=== PATIENT | female | born 1950 | race Asian ===

== ENCOUNTER → 2017-06-20 | Outpatient (REF) ==
[~2017-06-20] MED LIST: CALCIUM1 CAP PO; CHOLESTROL; FOSAMAX PO; LORTAB 5/500 501 TAB PO; bp med
== END ==
LOC: ZLAB.WCH 18:03
DX: Z01.89 Encounter for other specified special examinations (principal)

== ENCOUNTER → 2018-06-25 | Outpatient (REF) | LOC: ZLAB.WCH 18:01 | DX: Z01.89 Encounter for other specified special examinations (principal) ==